=== PATIENT | female | born 1985 | race African-American/Black ===

== ENCOUNTER 2018-08-20 20:02 | Emergency (ER) | payer OTHER ==
[~2018-08-20 20:02] MED LIST: NO MEDS; PRENATALS
== END 2018-08-20 20:30 | disposition left against medical advice (07) ==
LOC: EMS 20:04
DX: R07.9 Chest pain, unspecified (principal); R51 Headache; Z53.21 Procedure and treatment not carried out due to patient leaving prior to being seen by health care provider